=== PATIENT | female | born 1995 | race Caucasian/White ===

== ENCOUNTER 2024-12-13 02:39 | Outpatient (CLI) | payer OTHER, SELFPAY ==
--- NOTE | 2024-12-13 07:45 | DI.RAD_ITS ---
Exam(s) XR ANKLE RT COMPLETE XR FOOT RT COMPLETE EXAM: XR FOOT RT COMPLETE and XR ankle RT complete CLINICAL HISTORY: chronic foot/ankle pain,M79.671. TECHNIQUE: 2D digital imaging was performed of the right ankle and foot. Six images were obtained. AP, oblique and lateral views were obtained. COMPARISON: CR XR ANKLE RT COMPLETE from 12/13/2024 FINDINGS: BONES: No acute fracture is present. No bony destructive lesion is seen. There is a small enthesophyt e at the posterior calcaneus. JOINTS: No dislocation present. The joint spaces are well maintained. SOFT TISSUE: Normal. Dystrophic calcifications are seen in the soft tissues posterior to the talus. O n the lateral view, there is a question of a rounded soft tissue density with calcifications anterior to the Achilles tendon shadow. IMPRESSION: 1. No acute abnormalities identified. 2. Question of a rounded soft tissue density with calcifications anterior to the Achilles shadow on t he lateral view. This may represent a soft tissue mass or possible bursitis. Please correlate with cl inical history. MRI of the ankle may be obtained for further evaluation. DATA REPOSITORY: RADIATION DOSE DELIVERED:
--- NOTE | 2024-12-13 07:45 | DI.RAD_ITS ---
Exam(s) XR FOOT LT COMPLETE XR ANKLE LT COMPLETE EXAM: XR FOOT LT COMPLETE and XR ankle LT complete CLINICAL HISTORY: comparison to R foot (chronic foot pain),M79.673. TECHNIQUE: 2D digital imaging was performed of the left ankle and foot. Six images were obtained. AP, oblique and lateral views were obtained. COMPARISON: There are no priors for comparison. FINDINGS: BONES: No acute fracture is present. No bony destructive lesion is seen. JOINTS: No dislocation present. The joint spaces are well maintained. SOFT TISSUE: Normal. IMPRESSION: Unremarkable radiographs of the left ankle and foot. DATA REPOSITORY: RADIATION DOSE DELIVERED:
== END 2024-12-13 02:59 ==
LOC: DI 02:39
PROVIDERS: Visit Provider Podiatrist
DX: M25.572 Pain in left ankle and joints of left foot (principal); M25.571 Pain in right ankle and joints of right foot
CPT/HCPCS: 73610; 73630